=== PATIENT | male | born 1975 | race Caucasian/White ===

== ENCOUNTER → 2019-11-30 | Outpatient (CLI) | payer OTHER | END | disposition home or self-care (01) | LOC: PLD 13:21 → LAB SHORT 13:21 | DX: M79.89 Other specified soft tissue disorders (principal); D21.20 Benign neoplasm of connective and other soft tissue of unspecified lower limb, including hip; M77.32 Calcaneal spur, left foot; M79.672 Pain in left foot | CPT/HCPCS: 88304 ==